=== PATIENT | female | born 1975 | race African-American/Black ===

== ENCOUNTER 2021-02-24 10:41 | Emergency (ER) | payer SELFPAY ==
--- NOTE | 2021-02-24 12:02 | CT ---
Head CT Technique: Multiple axial sections through the brain were obtained. Intravenous contrast was not utilized. Reconstructed coronal and sagittal images were obtained. Comparison: No prior intracranial imaging is available. Findings: Ventricles along with basal cisterns and sulci over the convexities are within normal limits for the patient's age. No abnormal parenchymal densities are seen. No evidence of intracranial hemorrhage is seen. No midline shift or mass-effect is seen. Bone window settings were reviewed. No acute calvarial abnormality is seen. Visualized paranasal sinuses and mastoid sinuses show nothing acute. Mild atherosclerotic calcification is seen within the carotid siphon. Incidental lipoma is noted within the posterior right scalp measuring 2.1 cm. Impression: 1. Incidental soft tissue lipoma within the posterior right scalp. 2. Slight senescent change as noted above. 3. No acute intracranial abnormality is appreciated. Diagnostic code #2
--- NOTE | 2021-02-24 12:12 | EDM.PDOC ---
ED HPI GENERAL MEDICAL PROBLEM - General Chief Complaint: General Stated Complaint: WEAKNESS/HARD TO TALK Time Seen by Provider: 02/24/21 11:06 Source of Information: Reports: Patient, RN Notes Reviewed History Limitations: Reports: No Limitations - History of Present Illness INITIAL COMMENTS - FREE TEXT/NARRATIVE: Patient is a 45-year-old female presenting to the emergency department for evaluation after experiencing an episode of dizziness and confusion. Patient reports that upon waking this morning, she felt dizzy and was having difficulty speaking. She was on the phone with her children and they witnessed this experience. Patient reports that she drank some orange juice and the symptoms quickly resolved. Reports that this time she feels well. She denies have any significant headache. She has had no recent illnesses. Reports she does have a history of high blood pressure but is not on medications for this. She has also been told that she is "prediabetic "in the past. She denies any recent falls or head injuries. She does not have a primary care provider. - Related Data Allergies Allergy/AdvReac Type Severity Reaction Status Date / Time No Known Allergies Allergy Verified 02/24/21 10:53 Home Meds: Home Meds . 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 Denies: Fever, Chills HEENT: Reports: No Symptoms Respiratory: Reports: No Symptoms Cardiovascular: Reports: No Symptoms Endocrine: Reports: No Symptoms GI/Abdominal: Reports: No Symptoms : Reports: No Symptoms Musculoskeletal: Reports: No Symptoms Skin: Reports: No Symptoms Neurological: Reports: Confusion, Dizziness, Trouble Speaking Psychiatric: Reports: No Symptoms Hematologic/Lymphatic: Reports: No Symptoms Immunologic: Reports: No Symptoms ED EXAM, GENERAL - Physical Exam Exam: See Below Exam Limited By: No Limitations General Appearance: Alert, WD/WN, No Apparent Distress Eye Exam: Bilateral Eye: Normal Inspection Head: Atraumatic, Normocephalic Respiratory/Chest: No Respiratory Distress, Lungs Clear, Normal Breath Sounds, No Accessory Muscle Use, Chest Non-Tender Cardiovascular: Normal Peripheral Pulses, Regular Rate, Rhythm, No Edema, No Gallop, No JVD, No Murmur, No Rub GI/Abdominal: Normal Bowel Sounds, Soft, Non-Tender, No Organomegaly, No Distention, No Abnormal Bruit, No Mass Extremities: Normal Inspection ( ), Normal Range of Motion, Non-Tender, Normal Capillary Refill, No Pedal Edema Neurological: Alert, Oriented, CN II-XII Intact, Normal Cognition, Normal Gait, Normal Reflexes, No Motor/Sensory Deficits Psychiatric: Normal Affect, Normal Mood Skin Exam: Warm, Dry, Intact, Normal Color, No Rash #1 Interpretation EKG Date: 02/24/21 Time: 11:41 Rhythm: NSR Rate (Beats/Min): 119 [place]: Normal P-Wave: Present QRS: Normal ST-T: Normal QT: Normal Course - Vital Signs Last Recorded V/S: Last Vital Signs Temp 96.9 F 02/24/21 10:51 Pulse 118 H 02/24/21 10:51 Resp 18 02/24/21 10:51 BP 217/96 H 02/24/21 10:51 Pulse Ox 96 02/24/21 10:51 - Orders/Labs/Meds Labs: Laboratory Tests 02/24/21 02/24/21 02/24/21 Range/Units 11:50 11:50 11:50 WBC 9.05 (3.98-10.04) K/mm3 RBC 5.12 (3.98-5.22) M/mm3 Hgb 13.9 (11.2-15.7) gm/dl Hct 43.9 (34.1-44.9) % MCV 85.7 (79.4-94.8) fl MCH 27.1 (25.6-32.2) pg MCHC 31.7 L (32.2-35.5) g/dl RDW Std Deviation 49.0 H (36.4-46.3) fL Plt Count 281 (182-369) K/mm3 MPV 12.1 (9.4-12.3) fl Neut % (Auto) 59.7 (34.0-71.1) % Lymph % (Auto) 32.9 (19.3-51.7) % [place] % (Auto) 6.2 (4.7-12.5) % Eos % (Auto) 0.3 L (0.7-5.8) Baso % (Auto) 0.7 (0.1-1.2) % Neut # (Auto) 5.40 (1.56-6.13) K/mm3 Lymph # (Auto) 2.98 (1.18-3.74) K/mm3 [place] # (Auto) 0.56 H (0.24-0.36) K/mm3 Eos # (Auto) 0.03 L (0.04-0.36) K/mm3 Baso # (Auto) 0.06 (0.01-0.08) K/mm3 Sodium 139 (136-145) mEq/L Potassium 3.6 (3.5-5.1) mEq/L Chloride 102 (98-107) mEq/L Carbon Dioxide 25 (21-32) mEq/L Anion Gap 15.6 H (5-15) BUN 8 (7-18) mg/dL Creatinine 0.8 (0.55-1.02) mg/dL Est Cr Clr Drug Dosing 71.91 mL/min Estimated GFR (MDRD) > 60 (>60) mL/min BUN/Creatinine Ratio 10.0 L (14-18) Glucose 194 H (70-99) mg/dL Hemoglobin A1c 6.7 H ( - 5.6) % Calcium 9.3 (8.5-10.1) mg/dL Total Bilirubin 0.2 (0.2-1.0) mg/dL AST 12 L (15-37) U/L ALT 23 (14-59) U/L Alkaline Phosphatase 123 H (46-116) U/L Troponin I < 0.017 (0.00-0.056) ng/mL Total Protein 8.6 H (6.4-8.2) g/dl Albumin 3.8 (3.4-5.0) g/dl Globulin 4.8 gm/dL Albumin/Globulin Ratio 0.8 L (1-2) - Re-Assessments/Exams Free Text/Narrative Re-Assessment/Exam: Patient is a 45-year-old female presenting to the emergency department for evaluation after experiencing an episode of dizziness, confusion, and difficulty speaking. She reports that symptoms began when she woke up this morning. She was on the phone with her children and they witnessed the episode. They told her to drink some orange juice because I thought she may have low blood sugar. Patient reports drinking orange juice and her symptoms quickly resolved. Exam is unremarkable. She has equal strength and injection wax molder bilaterally. Speech is normal. Patient states that she feels well now. Blood pressure was elevated initially at 217/96, however it did come down to the 180s systolically. I have ordered blood work including an A1c, EKG, and head CT. 02/24/21 12:47 Hematology significant for glucose elevated at 194, hemoglobin A1c 6.7. Otherwise unremarkable. This hemoglobin A1c does put her within the range of diabetes. CT scan of the head shows incidental soft tissue lipoma within the posterior right scalp as well as slight senescent changes. There is no acute intracranial abnormalities. Patient continues to feel well. She is likely suffering from hypoglycemia since symptoms did resolve after drinking orange juice. Discussed that I would like her to check her blood pressures daily and keep a log of the readings. I will send a referral to a provider in the clinic for her to follow-up on her blood sugars and blood pressure. Discussed return precautions. Discharge instructions as documented. Departure - Departure Time of Disposition: 12:47 Disposition: Home, Self-Care 01 Condition: Good Clinical Impression: Elevated blood pressure reading, Elevated hemoglobin A1c - Discharge Information *PRESCRIPTION DRUG MONITORING PROGRAM REVIEWED*: No *COPY OF PRESCRIPTION DRUG MONITORING REPORT IN PATIENT MATHEW: No Referrals: Parvin Escoto MD [Physician] - Forms: ED Department Discharge Additional Instructions: You were seen in the emergency department today for evaluation after experiencing episode of weakness, dizziness, and difficulty speaking which resolved after drinking orange juice. Your work-up included blood work, EKG of your heart, and CT scan of your head. Results of your work-up showed that your hemoglobin A1c is above the normal range and is consistent with a diagnosis of type 2 diabetes. Her blood pressure was also found to be elevated. Work-up was otherwise normal. You are likely suffering from low blood sugar this morning which resolved after drinking the orange juice. Recommend checking your blood pressures daily and keep a log of these readings. Referral has been sent to Dr. Parvin Escoto. Recommend calling her office today to set up a follow-up appointment at her next available visit to address your high blood pressure and blood sugars. Take the log of your blood pressure readings with you to your appointment. She did experience recurrence of symptoms that does not resolve with sugar intake or any other symptoms of concern, please do not hesitate to return to the emergency department for reevaluation. Sepsis Event Note (ED) - Focused Exam Vital Signs: Vital Signs Temp Pulse Resp BP Pulse Ox 02/24/21 10:51 96.9 F 118 H 18 217/96 H 96
[2021-02-24 12:34] LABS: HEMOGLOBIN A1C 6.7 %
== END 2021-02-24 13:01 | disposition home or self-care (01) ==
LOC: JD.ED 10:41
DX: D64.9 Anemia, unspecified (principal); I10 Essential (primary) hypertension
CPT/HCPCS: 36415; 70450; 70450-26; 80053; 83036; 84484; 85025; 93005; 99285-25

== ENCOUNTER 2021-02-26 09:37 | Emergency (ER) | payer SELFPAY ==
[2021-02-26] MEDS ORDERED: Sodium Chloride 0.9% 10 ML Syringe FLUSH PRN (10:15)
--- NOTE | 2021-02-26 10:27 | EDM.PDOC ---
ED HPI GENERAL MEDICAL PROBLEM - General Chief Complaint: Neurological Problem Stated Complaint: POSS STROKE Time Seen by Provider: 02/26/21 10:01 Source of Information: Reports: Patient, Family History Limitations: Reports: Language Barrier (She is and does not speak much [place]ese. Her children are here to help) - History of Present Illness INITIAL COMMENTS - FREE TEXT/NARRATIVE: The patient presents with difficulty speaking and right sided weakness and numbness. Her last time known well was Saturday at 8am. She woke up and had dizziness and some slurred speech. She drank some orange juice and she got better. Her children noticed this when they talked to her on the phone. She was evaluated here on Saturday. A CT of her head showed nothing acute. Her EKG looked good. Her blood sugar was elevated and hemoglobin A1C was elevated. She was supposed to follow up with her doctor and talk about getting on something for her blood sugars. She had a few more episodes like this and then yesterday about 8am she had left arm numbness and weakness with slurred speech. That has been constant. She denies headache, fever, chills, cough, chest pain, abdominal pain, nausea or vomiting. She does have some shortness of breath at times. She does have a history of hypertension but she is currently not being treated. Onset: Sudden Duration: Day(s): Severity: Moderate Improves with: Reports: None Worsens with: Reports: None Associated Symptoms: Reports: No Other Symptoms - Related Data Allergies Allergy/AdvReac Type Severity Reaction Status Date / Time No Known Allergies Allergy Verified 02/26/21 10:09 Home Meds: Home Meds . 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 Denies: Cough Cardiovascular: Reports: No Symptoms Endocrine: Reports: No Symptoms GI/Abdominal: Reports: No Symptoms : Reports: No Symptoms Musculoskeletal: Reports: No Symptoms Neurological: Reports: Other (Slurred speech and left arm numbness and weakness) ED EXAM, NEURO - Physical Exam Exam: See Below Exam Limited By: No Limitations General Appearance: Alert, No Apparent Distress Ears: Normal External Exam Nose: Normal Inspection Head Exam: Atraumatic, Normocephalic Neck: Normal Inspection Respiratory/Chest: No Respiratory Distress, Lungs Clear, Normal Breath Sounds Cardiovascular: Regular Rate, Rhythm, No Edema, No Murmur GI/Abdominal: Soft, Non-Tender, No Organomegaly, No Mass Neurological: Alert, Other (Mild to moderate weakness to the right arm and leg) #1 Interpretation EKG Date: 02/26/21 Time: 10:19 Rhythm: NSR Rate (Beats/Min): 95 [place]: Normal P-Wave: Present QRS: Normal ST-T: Normal QT: Normal Course - Vital Signs Last Recorded V/S: Last Vital Signs Temp 97.6 F 02/26/21 10:02 Pulse 98 02/26/21 10:02 Resp 16 02/26/21 10:02 BP 194/102 H 02/26/21 10:02 Pulse Ox 100 02/26/21 10:02 - Orders/Labs/Meds Orders: Active Orders 24 hr Category Date Time Status Cardiac Monitoring [RC] . DIRECTED Care 02/26/21 10:15 Active Peripheral IV Care [RC] . DIRECTED Care 02/26/21 10:16 Active Ang Head [CT] Stat Exams 02/26/21 10:18 Taken Sodium Chloride 0.9% [Normal Saline] 100 ml Med 02/26/21 12:45 Active IV ASDIRECTED Sodium Chloride 0.9% [Saline Flush] Med 02/26/21 10:15 Active 10 ml FLUSH ASDIRECTED PRN Peripheral IV Insertion Adult [OM.PC] Stat Oth 02/26/21 10:15 Ordered Medication Orders Sodium Chloride (Normal Saline) 100 mls @ 60 mls/hr IV ASDIRECTED BRIDGETTE Last Admin: 02/26/21 13:37 Dose: 60 mls/hr Documented by: [place] Sodium Chloride (Sodium Chloride 0.9% 10 Ml Syringe) 10 ml FLUSH ASDIRECTED PRN PRN Reason: Keep Vein Open Last Admin: 02/26/21 12:11 Dose: 10 ml Documented by: NOREEN Labs: Laboratory Tests 02/26/21 02/26/21 02/26/21 Range/Units 09:57 10:40 10:57 WBC 8.28 (3.98-10.04) K/mm3 RBC 5.08 (3.98-5.22) M/mm3 Hgb 13.9 (11.2-15.7) gm/dl Hct 43.6 (34.1-44.9) % MCV 85.8 (79.4-94.8) fl MCH 27.4 (25.6-32.2) pg MCHC 31.9 L (32.2-35.5) g/dl RDW Std Deviation 49.9 H (36.4-46.3) fL Plt Count 295 (182-369) K/mm3 MPV 11.7 (9.4-12.3) fl Neut % (Auto) 58.7 (34.0-71.1) % Lymph % (Auto) 33.3 (19.3-51.7) % [place] % (Auto) 6.8 (4.7-12.5) % Eos % (Auto) 0.2 L (0.7-5.8) Baso % (Auto) 0.6 (0.1-1.2) % Neut # (Auto) 4.86 (1.56-6.13) K/mm3 Lymph # (Auto) 2.76 (1.18-3.74) K/mm3 [place] # (Auto) 0.56 H (0.24-0.36) K/mm3 Eos # (Auto) 0.02 L (0.04-0.36) K/mm3 Baso # (Auto) 0.05 (0.01-0.08) K/mm3 PT (9.7-12.0) SECONDS INR APTT (21.7-31.4) SECONDS Sodium (136-145) mEq/L Potassium (3.5-5.1) mEq/L Chloride (98-107) mEq/L Carbon Dioxide (21-32) mEq/L Anion Gap (5-15) BUN (7-18) mg/dL Creatinine (0.55-1.02) mg/dL Est Cr Clr Drug Dosing mL/min Estimated GFR (MDRD) (>60) mL/min BUN/Creatinine Ratio (14-18) Glucose (70-99) mg/dL POC Glucose 219 H (70-99) mg/dL Calcium (8.5-10.1) mg/dL Total Bilirubin (0.2-1.0) mg/dL AST (15-37) U/L ALT (14-59) U/L Alkaline Phosphatase (46-116) U/L Troponin I (0.00-0.056) ng/mL Total Protein (6.4-8.2) g/dl Albumin (3.4-5.0) g/dl Globulin gm/dL Albumin/Globulin Ratio (1-2) SARS-CoV-2 RNA (IRENE) Negative (NEGATIVE) 02/26/21 02/26/21 Range/Units 10:57 10:57 WBC (3.98-10.04) K/mm3 RBC (3.98-5.22) M/mm3 Hgb (11.2-15.7) gm/dl Hct (34.1-44.9) % MCV (79.4-94.8) fl MCH (25.6-32.2) pg MCHC (32.2-35.5) g/dl RDW Std Deviation (36.4-46.3) fL Plt Count (182-369) K/mm3 MPV (9.4-12.3) fl Neut % (Auto) (34.0-71.1) % Lymph % (Auto) (19.3-51.7) % [place] % (Auto) (4.7-12.5) % Eos % (Auto) (0.7-5.8) Baso % (Auto) (0.1-1.2) % Neut # (Auto) (1.56-6.13) K/mm3 Lymph # (Auto) (1.18-3.74) K/mm3 [place] # (Auto) (0.24-0.36) K/mm3 Eos # (Auto) (0.04-0.36) K/mm3 Baso # (Auto) (0.01-0.08) K/mm3 PT 10.5 (9.7-12.0) SECONDS INR 0.94 APTT 30.8 (21.7-31.4) SECONDS Sodium 140 (136-145) mEq/L Potassium 3.9 (3.5-5.1) mEq/L Chloride 103 (98-107) mEq/L Carbon Dioxide 28 (21-32) mEq/L Anion Gap 12.9 (5-15) BUN 9 (7-18) mg/dL Creatinine 0.8 (0.55-1.02) mg/dL Est Cr Clr Drug Dosing 68.76 mL/min Estimated GFR (MDRD) > 60 (>60) mL/min BUN/Creatinine Ratio 11.3 L (14-18) Glucose 162 H (70-99) mg/dL POC Glucose (70-99) mg/dL Calcium 9.0 (8.5-10.1) mg/dL Total Bilirubin 0.2 (0.2-1.0) mg/dL AST 12 L (15-37) U/L ALT 26 (14-59) U/L Alkaline Phosphatase 121 H (46-116) U/L Troponin I < 0.017 (0.00-0.056) ng/mL Total Protein 8.3 H (6.4-8.2) g/dl Albumin 3.7 (3.4-5.0) g/dl Globulin 4.6 gm/dL Albumin/Globulin Ratio 0.8 L (1-2) SARS-CoV-2 RNA (IRENE) (NEGATIVE) Meds: Medications Generic Name Dose Route Start Last Admin Trade Name Omar PRN Reason Stop Dose Admin Sodium Chloride 100 mls @ 60 mls/hr 02/26/21 12:45 02/26/21 13:37 Normal Saline IV 60 mls/hr ASDIRECTED BRIDGETTE Administration Sodium Chloride 10 ml 02/26/21 10:15 02/26/21 12:11 Sodium Chloride 0.9% 10 Ml Syringe FLUSH 10 ml ASDIRECTED PRN Administration Keep Vein Open Discontinued Medications Generic Name Dose Route Start Last Admin Trade Name Freq PRN Reason Stop Dose Admin Aspirin 81 mg 02/26/21 13:49 02/26/21 14:35 Aspirin 81 Mg Tab.Chew PO 02/26/21 13:50 81 mg ONETIME ONE Administration Atorvastatin Calcium 20 mg 02/26/21 13:49 02/26/21 14:36 Atorvastatin 20 Mg Tab PO 02/26/21 13:50 20 mg ONETIME ONE Administration Clopidogrel Bisulfate 75 mg 02/26/21 13:49 02/26/21 14:35 Clopidogrel 75 Mg Tab PO 02/26/21 13:50 75 mg ONETIME ONE Administration Iopamidol 100 ml 02/26/21 12:45 02/26/21 13:37 Iopamidol 755 Mg/Ml 100 Ml Bottle IVPUSH 02/26/21 12:46 100 ml ONETIME ONE Administration Sodium Chloride 10 ml 02/26/21 12:45 02/26/21 13:37 Sodium Chloride 0.9% 10 Ml Syringe FLUSH 02/26/21 12:46 10 ml ONETIME ONE Administration - Re-Assessments/Exams Free Text/Narrative Re-Assessment/Exam: 02/26/21 10:31 A stroke alert was called. Her last time known well was Saturday at 8am. I ordered an IV saline lock, EKG, CT of her head and labs. Her EKG shows a NSR with no acute changes. 02/26/21 11:[address] shows findings of incidental lipoma is noted within the posterior right scalp. No acute intracranial abnormality is appreciated. Her NIH stroke score was 7. 02/26/21 13:39 Her CBC looks good. Her PT and PTT were normal. Her glucose was elevated at 219. Her Alk Phos was elevated at 121. Her troponin is negative. Her COVID 19 is negative. I called both hospitals in [place] and they have no beds. I called [facility] in [place] and talked to the neurologist. He wanted a CT angio of her head. I ordered that and the CT angio showed the posterior circulation is severely diminutive but likely on a developmental basis given the large bilateral posterior comminuting arteries supplying the distal basilar distribution. No acquired flow-limiting intracranial vascular stenosis, aneurysm or ABM is identified. He wanted her to be on aspirin, plavix, and a statin. He also wanted her admitted and rehab as necessary. If she has another TIA in 90s days she may need to be stented. They have no beds and cannot take her. 02/26/21 14:52 I called [facility] in [place] and they had a bed. I talked with Dr Aviles the neurologist television news producer and Dr Patel the hospitalist television news producer and he agreed to the transfer. Departure - Departure Time of Disposition: 15:00 Disposition: Home, Self-Care 01 Condition: Good Clinical Impression: CVA (cerebral vascular accident) Qualifiers: CVA mechanism: unspecified Qualified Code(s): I63.9 - Cerebral infarction, unspecified Hypertension Qualifiers: Hypertension type: unspecified Qualified Code(s): I10 - Essential (primary) hypertension Type II diabetes mellitus Qualifiers: Diabetes mellitus long term care phlebotomist insulin use: without shelter use Diabetes mellitus complication status: without complication Qualified Code(s): E11.9 - Type 2 diabetes mellitus without complications - Discharge Information *PRESCRIPTION DRUG MONITORING PROGRAM REVIEWED*: Not Applicable *COPY OF PRESCRIPTION DRUG MONITORING REPORT IN PATIENT MATHEW: Not Applicable Referrals: PCP,None [Primary Care Provider] - Forms: ED Department Discharge Sepsis Event Note (ED) - Focused Exam Vital Signs: Vital Signs Temp Pulse Resp BP Pulse Ox 02/26/21 10:02 97.6 F 98 16 194/102 H 100 - My Orders Last 24 Hours: My Active Orders 02/26/21 10:15 Cardiac Monitoring [RC] . DIRECTED Sodium Chloride 0.9% [Saline Flush] 10 ml FLUSH ASDIRECTED PRN Peripheral IV Insertion Adult [OM.PC] Stat 02/26/21 10:16 Peripheral IV Care [RC] . DIRECTED 02/26/21 10:18 Ang Head [CT] Stat 02/26/21 12:45 Sodium Chloride 0.9% [Normal Saline] 100 ml IV ASDIRECTED - Assessment/Plan Last 24 Hours: My Active Orders 02/26/21 10:15 Cardiac Monitoring [RC] . DIRECTED Sodium Chloride 0.9% [Saline Flush] 10 ml FLUSH ASDIRECTED PRN Peripheral IV Insertion Adult [OM.PC] Stat 02/26/21 10:16 Peripheral IV Care [RC] . DIRECTED 02/26/21 10:18 Ang Head [CT] Stat 02/26/21 12:45 Sodium Chloride 0.9% [Normal Saline] 100 ml IV ASDIRECTED
--- NOTE | 2021-02-26 10:50 | CT ---
Head CT Technique: Multiple axial sections through the brain were obtained. Intravenous contrast was not utilized. Reconstructed coronal and sagittal images were obtained. Comparison: Prior head CT study of 02/24/21. Findings: Ventricles along with basal cisterns and sulci over the convexities are within normal limits for the patient's age. No abnormal parenchymal densities are seen. No evidence of intracranial hemorrhage is seen. No midline shift or mass-effect is seen. Minimal atherosclerotic calcification is noted within the carotid siphon. Bone window settings were reviewed. No acute calvarial abnormality is appreciated. Visualized mastoid sinuses and paranasal sinuses show nothing acute. Incidental lipoma is noted within the posterior right scalp. Impression: 1. Findings as noted above which are stable from prior head CT study. 2. No acute intracranial abnormality is appreciated. Note: Given the patient's symptoms, MRI study could be considered to further evaluate. Diagnostic code #2
[2021-02-26] MEDS ORDERED: Iopamidol 755 Mg/ML 100 ML Bottle IVPUSH ONE (12:45)
[2021-02-26] MEDS ORDERED: Sodium Chloride 0.9% 100 ML IV SCH (12:45)
[2021-02-26] MEDS ORDERED: Sodium Chloride 0.9% 10 ML Syringe FLUSH ONE (12:45)
[2021-02-26] MEDS ORDERED: Aspirin 81 MG Tab.Chew PO ONE (13:49)
[2021-02-26] MEDS ORDERED: atorvaSTATin 20 MG Tab PO ONE (13:49)
[2021-02-26] MEDS ORDERED: Clopidogrel 75 MG Tab PO ONE (13:49)
--- NOTE | 2021-02-26 15:40 | CT ---
CT angiogram of the brain Technique: Multiple axial sections through the brain were obtained. Intravenous contrast was utilized. Study has been performed as a CT angiogram study with multiple MIP images obtained. Comparison: No previous vascular study is available. Findings: Vertebral arteries are small in size. Distal anterior cerebral arteries are patent. Normal flow into the middle cerebral arteries and posterior cerebral arteries are seen. Anterior cerebral artery flow is normal. No discrete stenosis or aneurysm is seen. Note: Posterior cerebral arteries are supplied by patent posterior communicating arteries. Impression: 1. Small vertebral arteries which are most likely due to prominent posterior communicating artery supplying the posterior cerebral arteries. 2. Patent anterior distal cerebral arteries with normal flow into the anterior, middle and posterior cerebral arteries. 3. No focal stenosis or aneurysm is seen. Diagnostic code #2 I agree with preliminary report from [facility], finalized on 02/26/21, 1:47 PM CDT
== END 2021-02-26 15:45 | disposition home or self-care (01) ==
LOC: JD.ED 09:37
DX: I62.9 Nontraumatic intracranial hemorrhage, unspecified (principal); R47.81 Slurred speech; R29.810 Facial weakness; R53.1 Weakness; I10 Essential (primary) hypertension; E11.9 Type 2 diabetes mellitus without complications; Z20.822 Contact with and (suspected) exposure to COVID-19
CPT/HCPCS: 36415; 70450; 70496; 80053; 82947; 84484; 85025; 85610; 85730; 87635; 93005; 99285; A9270; Q9967; U0002

== ENCOUNTER 2022-01-07 16:39 | Emergency (ER) | payer MEDICAID ==
[2022-01-07] MEDS ORDERED: Sodium Chloride 0.9% 1,000 ML IV SCH (17:15)
[2022-01-07] MEDS: Sodium Chloride 0.9% 10 ML Syringe FLUSH PRN ×3 (17:21→20:03)
[2022-01-07] MEDS ORDERED: Iopamidol 612 MG/ML 50 ML SDV IVPUSH ONE (17:45)
[2022-01-07] MEDS ORDERED: Iopamidol 612 MG/ML 100 ML Bottle IVPUSH ONE (17:45)
[2022-01-07] MEDS ORDERED: HYDROmorphone 0.5 MG/0.5 ML Syringe IVPUSH ONE (19:53)
== END 2022-01-07 20:10 | disposition home or self-care (01) ==
LOC: JD.ED 16:39
DX: K91.840 Postprocedural hemorrhage of a digestive system organ or structure following a digestive system procedure (principal); D64.89 Other specified anemias; M79.81 Nontraumatic hematoma of soft tissue; E78.00 Pure hypercholesterolemia, unspecified; I10 Essential (primary) hypertension; E11.9 Type 2 diabetes mellitus without complications; Z79.82 Long term (current) use of aspirin; Z79.02 Long term (current) use of antithrombotics/antiplatelets; Z79.84 Long term (current) use of oral hypoglycemic drugs; Z79.899 Other long term (current) drug therapy; Z20.822 Contact with and (suspected) exposure to COVID-19
CPT/HCPCS: 36415; 74177; 80053; 85025; 85610; 85730; 87635; 96361; 96374; 99284; J1170; J3490; J7030; Q9967; U0002